=== PATIENT | female | born 1955 | race Two or more races ===

== ENCOUNTER 2017-11-01 15:53 | Emergency (ER) | payer OTHER ==
[2017-11-01] MEDS: traMADol 50 MG TAB PO (16:23)
== END 2017-11-01 17:35 | disposition home or self-care (01) ==
LOC: FTE 15:53
DX: M25.562 Pain in left knee (principal); I10 Essential (primary) hypertension; E11.9 Type 2 diabetes mellitus without complications; Z79.84 Long term (current) use of oral hypoglycemic drugs
CPT/HCPCS: 73562; 93971; 99284-25

== ENCOUNTER 2018-08-15 11:02 | Day surgery (SDC) | payer OTHER ==
[~2018-08-15 11:02] MED LIST: BUPIVACAINE 0.5% (SDV) 30 ML, morphine SULFATE (PF) 8 MG, EPINEPHrine 0.3 MG, KETOROLAC... IRR
[2018-08-15] MEDS: VANCOMYCIN 1 GM (PMX) 250 ML IVPB (11:58)
[2018-08-15] MEDS: GABAPENTIN 300 MG CAP PO (11:59)
[2018-08-15] MEDS: DEXAMETHASONE 4 MG TAB PO (11:59)
[2018-08-15] MEDS ORDERED: ROPIVACAINE 0.5 % 30 ML VIAL (12:39)
[2018-08-15] MEDS ORDERED: FENTAnyl 50 MCG/ML VIAL (12:39)
[2018-08-15] MEDS ORDERED: NEOSTIGMINE 3 MG/3 ML SYRINGE (12:39)
[2018-08-15] MEDS ORDERED: CEFAZOLIN 1 GM INJ (12:39)
[2018-08-15] MEDS ORDERED: PROPOFOL 20 ML (12:39)
[2018-08-15] MEDS ORDERED: ROCURONIUM 50 MG INJ (12:39)
[2018-08-15] MEDS ORDERED: MIDAZOLAM 1 MG/ML 2 ML INJ (12:39)
[2018-08-15] MEDS ORDERED: GLYCOPYRROLATE 0.4 MG INJ (12:39)
[2018-08-15] MEDS ORDERED: ONDANSETRON 4 MG INJ (12:39)
[2018-08-15] MEDS ORDERED: SUGAMMADEX SODIUM 200 MG/2 ML VIAL IV (13:32)
[2018-08-15] MEDS ORDERED: FENTAnyl 50 MCG/ML VIAL IV ×2 (14:30)
[2018-08-15] MEDS ORDERED: EPHEDrine SULFATE 50 MG/5 ML SYG IV (14:30)
[2018-08-15] MEDS ORDERED: TRIMETHOBENZAMIDE 100 MG/ML VIAL IM (14:30)
[2018-08-15] MEDS ORDERED: hydrALAzine 20 MG INJ IV (14:30)
[2018-08-15] MEDS ORDERED: ONDANSETRON 4 MG INJ IV (14:30)
[2018-08-15] MEDS ORDERED: MIDAZOLAM 1 MG/ML 2 ML INJ IV (14:30)
[2018-08-15] MEDS ORDERED: IPRATROPIUM (NEB) 0.5 MG/2.5 ML AMP HHN (14:30)
[2018-08-15] MEDS ORDERED: HYDROmorphONE 1 MG/5 ML IV SYRINGE IV ×3 (14:30)
[2018-08-15] MEDS ORDERED: MEPERIDINE 25 MG INJ IV (14:30)
[2018-08-15] MEDS ORDERED: LABETALOL HCL 20MG INJ IV (14:30)
[2018-08-15] MEDS ORDERED: DIPHENHYDRAMINE 50 MG INJ IV (14:30)
[2018-08-15] MEDS ORDERED: OXYCODONE/ACETAMINOPHEN (5/325) TAB PO ×2 (14:30)
[2018-08-15] MEDS: FENTAnyl 50 MCG/ML VIAL IV ×2 (15:34→15:42)
[2018-08-15] MEDS: ALBUTEROL 0.083% (NEB) 2.5 MG/3 ML AMP HHN ×2 (15:35→15:47)
== END 2018-08-15 17:08 | disposition home or self-care (01) ==
LOC: SDS 11:02
DX: M75.102 Unspecified rotator cuff tear or rupture of left shoulder, not specified as traumatic (principal); M75.02 Adhesive capsulitis of left shoulder; M19.012 Primary osteoarthritis, left shoulder; S46.212A Strain of muscle, fascia and tendon of other parts of biceps, left arm, initial encounter; X58.XXXA Exposure to other specified factors, initial encounter; Y93.89 Activity, other specified; Y92.89 Other specified places as the place of occurrence of the external cause; Y99.8 Other external cause status; I10 Essential (primary) hypertension; E78.5 Hyperlipidemia, unspecified; E11.9 Type 2 diabetes mellitus without complications; R06.02 Shortness of breath
CPT/HCPCS: 29824; 82962; 93005; 94664